=== PATIENT | male | born 1945 | race Caucasian/White ===

== ENCOUNTER → 2016-05-01 | Outpatient (REF) | payer MEDICARE, OTHER | LOC: M LAB REF 12:00 | PROVIDERS: ATTEND Internal Medicine Medical Oncology | DX: D72.820 Lymphocytosis (symptomatic) (principal) ==

== ENCOUNTER → 2016-05-01 | Outpatient (REF) | payer BC, OTHER ==
[2016-05-01 13:26] LABS: REASON FOR REVIEW COMPREHENSIVE REVIEW
== END ==
LOC: M LAB REF 12:43
PROVIDERS: ATTEND Internal Medicine Medical Oncology
DX: D72.89 Other specified disorders of white blood cells (principal)

== ENCOUNTER → 2016-08-28 | Outpatient (REF) | payer BC, MEDICARE, OTHER ==
[2016-08-28 14:30] LABS: URIC ACID 6.8 MG/DL (3.5-7.2)
== END ==
LOC: M LAB REF 13:26
PROVIDERS: ATTEND Internal Medicine Medical Oncology
DX: C91.10 Chronic lymphocytic leukemia of B-cell type not having achieved remission (principal)

== ENCOUNTER → 2018-05-17 | Outpatient (REF) | payer MEDICARE, OTHER ==
[~2018-05-17] MED LIST: ATOR1TAB19 PO; CLOP75TA2 PO; RAMI1CAP24 PO; TAMS1CAP17 PO
== END ==
LOC: M LAB LCGH 11:16
PROVIDERS: ATTEND Surgery
DX: C44.619 Basal cell carcinoma of skin of left upper limb, including shoulder (principal)

== ENCOUNTER → 2018-12-02 | Outpatient (REF) | LOC: M LAB LCGH 15:28 | PROVIDERS: ATTEND Physician Assistant | DX: L57.0 Actinic keratosis (principal); L82.1 Other seborrheic keratosis ==

== ENCOUNTER → 2018-12-31 | Outpatient (REF) | LOC: M LAB LCGH 13:34 | PROVIDERS: ATTEND Nurse Practitioner Family | DX: C44.519 Basal cell carcinoma of skin of other part of trunk (principal); L57.0 Actinic keratosis; C44.611 Basal cell carcinoma of skin of unspecified upper limb, including shoulder; C44.712 Basal cell carcinoma of skin of right lower limb, including hip ==

== ENCOUNTER → 2020-10-22 | Outpatient (CLI) | payer MEDICARE, BC ==
[~2020-10-22] MED LIST changes: +COVI100V IM; +D31000TA2 PO; +OSTETAB2 PO; +VITMTA PO
--- NOTE | 2020-10-22 11:50 | REP ---
INDICATION: STRAIN OF MUSC/TEND THE ROTATOR CUFF OF LEFT SHOULDER. COMPARISON: None. TECHNIQUE: Coronal oblique T1, T2 fat sat, sagittal oblique T2 fat sat, axial T2 fat sat, gradient echo. FINDINGS: Rotator cuff: There is an extensive full-thickness tear of the supraspinatus tendon, with some sparing of the more anterior aspect of the tendon. The other rotator cuff tendons appear intact. Acromioclavicular joint: There are moderate hypertrophic degenerative changes of the acromioclavicular joint. Acromion: Type 2 Biceps Tendon: In bicipital groove, there is mild thickening and edema of the biceps tendon with mild surrounding fluid which I suspect represents mild tendinitis. Hill Sach's deformity: None. Deltoid muscle: No abnormal signal. Biceps labral complex: The biceps labral complex is torn. Labrum: There is a diffuse SLAP tear. There appears to be an inferior labral tear. Cartilage: There is mild chondromalacia at the glenohumeral joint. Bone marrow: There is mild subcortical marrow edema in the inferior bony glenoid. There is mild spurring of the humeral head. Joint fluid: There is a large joint effusion extending into the subacromial/subdeltoid bursae, and dissecting medially around all of the rotator cuff muscles. IMPRESSION: Extensive full-thickness tear supraspinatus tendon with some sparing of the more anterior aspect of the tendon. 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 There are findings suggesting tendinitis of the biceps tendon is within the bicipital groove. There is a tear of the biceps labral complex and a diffuse SLAP tear. I also suspect inferior labral tear. Large joint effusion extends into the subacromial/subdeltoid bursae, as well as medially along the rotator cuff muscles. <Electronically signed by David Tolbert > 10/22/20 2851
== END ==
LOC: M PLAIMG 10:34
PROVIDERS: ATTEND Orthopaedic Surgery
DX: S46.012D Strain of muscle(s) and tendon(s) of the rotator cuff of left shoulder, subsequent encounter (principal); M25.412 Effusion, left shoulder; X58.XXXD Exposure to other specified factors, subsequent encounter; Y92.9 Unspecified place or not applicable; Y99.9 Unspecified external cause status; Y93.9 Activity, unspecified

== ENCOUNTER → 2024-09-02 | Outpatient (CLI) | payer MEDICARE, BC ==
[~2024-09-02] MED LIST changes: -D31000TA2 PO; +ISOVUE-370 76% 100 ML VIAL ONE; -RAMI1CAP24 PO; +RAMI5CAP60 PO; +VITA100093 PO
== END ==
LOC: M PLAIMG 09:13
PROVIDERS: ATTEND Internal Medicine Cardiovascular Disease
DX: R06.02 Shortness of breath (principal); R59.0 Localized enlarged lymph nodes
CPT/HCPCS: 71275; Q9967

== ENCOUNTER → 2024-09-22 | Outpatient (CLI) | payer MEDICARE, BC ==
[~2024-09-22] MED LIST changes: +ATOR1TAB21; +ELIQ5TAB; +ENTR1TAB; +FARX1TAB3; -ISOVUE-370 76% 100 ML VIAL ONE; +METO1TAB7
== END ==
LOC: M PLARAD 14:10
PROVIDERS: ATTEND Internal Medicine Medical Oncology
DX: C91.90 Lymphoid leukemia, unspecified not having achieved remission (principal)
CPT/HCPCS: 78815; A9552

== ENCOUNTER → 2024-12-08 | Outpatient (CLI) | payer MEDICARE, BC ==
[2024-12-08 12:03] VITALS: TEMP 97.7
[2024-12-08 12:58] VITALS: BP 126/88; O2SAT 98
[2024-12-08] MEDS: LIDOCAINE 1% MDV 20 ML VIAL SC ONE (13:00)
== END ==
LOC: M IRPRO 11:59
PROVIDERS: ATTEND Internal Medicine Medical Oncology
DX: C91.10 Chronic lymphocytic leukemia of B-cell type not having achieved remission (principal)

== ENCOUNTER → 2024-12-10 | Outpatient (CLI) | payer MEDICARE, BC | LOC: M PLAIMG 08:30 | PROVIDERS: ATTEND Internal Medicine Cardiovascular Disease | DX: R06.02 Shortness of breath (principal); I48.91 Unspecified atrial fibrillation; I08.0 Rheumatic disorders of both mitral and aortic valves ==